=== PATIENT | female | born 1965 | race Caucasian/White ===

== ENCOUNTER 2017-06-16 21:39 | Inpatient (IN) | payer SELFPAY ==
[~2017-06-16] VITALS: Ht 157.5 cm; Wt 118.9 kg
[2017-06-16 22:59] LABS: PLATELET COUNT 262 x10^3mcL (130-400)
[2017-06-16 23:15] LABS: CALCIUM 9.1 mg/dL (8.5-10.1); CARBON DIOXIDE 24.9 mmol/L (21-32); CHLORIDE SERUM 98 mmol/L (98-107); CREATININE SERUM 0.9 mg/dL (0.6-1.0); GFR1 > 60 mL/min; GLUCOSE SERUM 411 mg/dL (74-106); POTASSIUM SERUM 3.8 mmol/L (3.5-5.1); SODIUM SERUM 134 mmol/L (136-145)
[2017-06-16 23:19] LABS: ALKALINE PHOSPHATASE 162 U/L (46-116); ALT/SGPT 37 U/L (14-59); AST/SGOT 24 U/L (15-37); BILIRUBIN TOTAL 1.1 mg/dL (0.20-1.00); LIPASE 113 IU/L (73-393); TOTAL PROTEIN, SERUM 7.9 g/dL (6.4-8.2)
[2017-06-16 23:23] LABS: ALBUMIN 3.3 g/dL (3.4-5.0); AMYLASE 19 U/L (25-115)
[2017-06-16 23:25] LABS: UA SPECIFIC GRAVITY <=1.005 (1.005-1.035); microscopic required? YES; urine erythrocyte 3+ (NEGATIVE)
[2017-06-17 00:04] LABS: BAND NEUTROPHIL 2 % (0-10); METAMYELOCTE 2 % (0-2); MONOCYTE 5 % (0-7); SEGMENTED NEUTROPHILS 82 % (37-75)
[2017-06-17 00:05] LABS: PLATELET MORPHOLOGY FEW LARGE PLATELETS; rbc morphology (normal/abnorm) NORMAL (NORMAL)
[2017-06-17 04:16] LABS: T3 TOTAL 0.78 ng/mL
[2017-06-17 04:25] VITALS: BP 102/69
[2017-06-17 04:32] LABS: MAGNESIUM 1.8 mg/dL (1.8-2.4); PHOSPHOROUS 3.2 mg/dL (2.5-4.9)
[2017-06-17 04:34] LABS: FREE T4 1.61 ng/dL (0.76-1.46); FREE THYROXINE INDEX 3.6 ug/dL (1.4-4.5); T4(THYROXINE) 9.8 ug/dL (4.7-13.3)
[2017-06-17 04:35] LABS: CHOLESTEROL/HDL RATIO 1.9
[2017-06-17 05:47] VITALS: BP 102/69
[2017-06-17 10:12] VITALS: BP 106/50
[2017-06-17 13:34] LABS: AMPHETAMINE QUAL UR NONE DETECTED (NEG <=1000)
[2017-06-17 14:46] VITALS: BP 110/62
[2017-06-17] MEDS ORDERED: LEV500PM IV (16:31)
[2017-06-17] MEDS ORDERED: DIF100 PO (16:31)
[2017-06-17] MEDS ORDERED: FLA500I IV (16:32)
[2017-06-17] MEDS ORDERED: NS1000 IV (16:38)
[2017-06-17] MEDS ORDERED: LAC PO (16:40)
[2017-06-17] MEDS ORDERED: HUMULIN R100 U/1 M1 SC (16:41)
[2017-06-17] MEDS ORDERED: BG FS (16:47)
[2017-06-17] MEDS ORDERED: GLU500 PO (16:50)
[2017-06-17] MEDS ORDERED: [UNRECOGNIZED DRUG - CODE] IV (16:50)
[2017-06-17 17:57] VITALS: BP 105/41
[2017-06-17 23:29] VITALS: BP 113/57
[2017-06-18 06:30] VITALS: BP 110/53
[2017-06-18 07:21] LABS: PLATELET COUNT 264 x10^3mcL (130-400); RED CELL DISTRIBUTION WIDTH 11.9 % (11.5-14.5)
[2017-06-18 07:32] LABS: CALCIUM 8.1 mg/dL (8.5-10.1); CARBON DIOXIDE 26.7 mmol/L (21-32); CHLORIDE SERUM 106 mmol/L (98-107); CREATININE SERUM 0.7 mg/dL (0.6-1.0); GFR1 > 60 mL/min; GLUCOSE SERUM 277 mg/dL (74-106); MAGNESIUM 1.7 mg/dL (1.8-2.4); POTASSIUM SERUM 3.6 mmol/L (3.5-5.1); SODIUM SERUM 140 mmol/L (136-145)
[2017-06-18 09:40] LABS: BAND NEUTROPHIL 3 % (0-10); BASOPHIL 0 % (0-2); MONOCYTE 6 % (0-7); SEGMENTED NEUTROPHILS 81 % (37-75)
[2017-06-18 09:41] LABS: PLATELET MORPHOLOGY PLATELETS NORMAL
[2017-06-18 10:17] VITALS: BP 124/66
[2017-06-18 14:24] VITALS: BP 114/54
[2017-06-18 21:23] VITALS: BP 113/47
[2017-06-19 05:48] VITALS: BP 123/54
[2017-06-19 06:15] LABS: CALCIUM 8.5 mg/dL (8.5-10.1); CARBON DIOXIDE 28.7 mmol/L (21-32); CHLORIDE SERUM 104 mmol/L (98-107); CREATININE SERUM 0.6 mg/dL (0.6-1.0); GFR1 > 60 mL/min; GLUCOSE SERUM 175 mg/dL (74-106); MAGNESIUM 1.7 mg/dL (1.8-2.4); PHOSPHOROUS 3.3 mg/dL (2.5-4.9); SODIUM SERUM 143 mmol/L (136-145)
[2017-06-19 06:41] LABS: BASOPHIL % 0.4 % (0-2); PLATELET COUNT 302 x10^3mcL (130-400); RED CELL DISTRIBUTION WIDTH 12.1 % (11.5-14.5)
[2017-06-19 09:40] VITALS: BP 123/51
[2017-06-19 12:58] VITALS: BP 131/59
[2017-06-19 15:28] VITALS: BP 131/59
[2017-06-19] MEDS ORDERED: LEVAQUIN750 MG PO (15:37)
[2017-06-19] MEDS ORDERED: CLINDAMYCIN HC300 MG PO (15:37)
== END 2017-06-19 16:35 | disposition other institution (70) | DRG 872 ==
LOC: ED 21:39 → DU 06-17 02:07
PROVIDERS: Emergency Medicine; ADMIT Family Medicine
DX: A41.9 Sepsis, unspecified organism (principal); K57.32 Diverticulitis of large intestine without perforation or abscess without bleeding; D68.69 Other thrombophilia; Z68.43 Body mass index [BMI] 50.0-59.9, adult; E87.1 Hypo-osmolality and hyponatremia; E44.0 Moderate protein-calorie malnutrition; B37.41 Candidal cystitis and urethritis; N39.0 Urinary tract infection, site not specified; E11.65 Type 2 diabetes mellitus with hyperglycemia; Z90.49 Acquired absence of other specified parts of digestive tract; Z98.51 Tubal ligation status; Z90.710 Acquired absence of both cervix and uterus; E66.01 Morbid (severe) obesity due to excess calories
CPT/HCPCS: 82962; 83880; 84439; J1170; J1815; J1956; J3480; J3490; J7030; Q0092; Q0162